=== PATIENT | male | born 1945 | race Caucasian/White ===

== ENCOUNTER 2016-06-14 07:58 | Outpatient (CLI) | payer MEDICARE, OTHER ==
[~2016-06-14] VITALS: Ht 180.3 cm; Wt 111.2 kg
[~2016-06-14 07:58] MED LIST: ASP325T PO; BP MED; BSP10T PO; BUPR150T20 PO; CALC-817 PO; CHOLESTEROL MED; CIME300T49 PO; DCC240C PO; DCS100C PO; GBPN300C PO; METO25TA2 PO; MULT-974 PO; OMEP20TA2 PO; OXYC-12 PO; RANI75TA30 PO; SLEEPING PILL; SODI100P15 DT; SRTR100T PO; TRAZ300T3 PO; TRZ100T PO; ZOLP10TA5 PO; calcium; gabapentin
[2016-06-14 08:19] VITALS: BP 132/83
[2016-06-14 09:15] LABS: BASOPHILS % (AUTO) 1 % (0-10); EOSINOPHILS # (AUTO) 0.3 10^3/uL (0.0-0.3); EOSINOPHILS % (AUTO) 8 % (0-10); LYMPHOCYTES % (AUTO) 27 % (12-44); MEAN CORPUSCULAR HEMOGLOBIN 33 PG (25-34); MEAN CORPUSCULAR HGB CONC 34 G/DL (32-36); MEAN CORPUSCULAR VOLUME 98 FL (80-99); MEAN PLATELET VOLUME 9.5 FL (7.4-10.4); MONOCYTES # (AUTO) 0.4 X 10^3 (0.0-1.0); MONOCYTES % (AUTO) 10 % (0-12); NEUTROPHILS # (AUTO) 1.9 X 10^3 (1.8-7.8); NEUTROPHILS % (AUTO) 54 % (42-75); PLATELET COUNT 208 10^3/uL (130-400); RED BLOOD COUNT 4.51 10^6/uL (4.35-5.85); WHITE BLOOD COUNT 3.5 10^3/uL (4.3-11.0)
[2016-06-14 09:33] LABS: ANION GAP 8 MMOL/L (5-14); BLOOD UREA NITROGEN 18 MG/DL (7-18); BUN/CREATININE RATIO 18; CALCIUM 9.2 MG/DL (8.5-10.1); CARBON DIOXIDE 30 MMOL/L (21-32); CHLORIDE 104 MMOL/L (98-107); CREATININE SERUM 1.01 MG/DL (0.60-1.30); GFR ESTIMATED > 60; GLUCOSE 97 MG/DL (70-105); POTASSIUM 4.7 MMOL/L (3.6-5.0); SODIUM 142 MMOL/L (135-145)
--- OUTSIDE RECORDS SUMMARY | 2016-06-14 13:11 | XMS REPORT | Continuity of Care Document ---
Author Author [facility] Organization [facility] Address Unknown Phone Unavailable Allergies Active Description Code Type Severity Reaction Onset Reported/Identified Relationship to Patient Clinical Status Yes codeine [id number] Drug Allergy Unknown N/A 01/16/2011 Yes morphine [id number] Drug Allergy Unknown N/A 01/16/2011 Medications Problems Date Dx Coded Attending Type Code Diagnosis Diagnosed By 05/22/2014 GISELL SMITH DO Ot 794.5 06/17/2014 GISELL SMITH DO Ot 794.5 Procedures Results Encounters ACCT No. Visit Date/Time Discharge Status Pt. Type Provider Facility Loc./Unit Complaint [id number] 05/19/2014 13:16:00 2014 23:59:59 CLS Outpatient GISELL SMITH DO [facility] RAD [id number] 02/25/2013 09:55:00 2012 15:58:00 DIS Inpatient [id number] 02/21/2013 09:32:00 2012 23:59:59 CLS Outpatient
== END 2016-06-14 09:00 | disposition home or self-care (01) ==
LOC: PREOP 07:58
PROVIDERS: ATTEND Otolaryngology Otolaryngology/Facial Plastic Surgery
DX: Z01.812 Encounter for preprocedural laboratory examination (principal); Z11.2 Encounter for screening for other bacterial diseases; L98.9 Disorder of the skin and subcutaneous tissue, unspecified
CPT/HCPCS: 36415; 80048; 85025; 87081; 93005

== ENCOUNTER 2016-06-16 07:49 | Day surgery (SDC) | payer MEDICARE, OTHER ==
[~2016-06-16] VITALS: Ht 180.3 cm; Wt 111.2 kg
--- OUTSIDE RECORDS SUMMARY | 2016-06-16 07:52 | XMS REPORT | Continuity of Care Document ---
Author Author [facility] Organization [facility] Address Unknown Phone Unavailable Allergies Active Description Code Type Severity Reaction Onset Reported/Identified Relationship to Patient Clinical Status Yes codeine [id number] Drug Allergy Unknown N/A 01/16/2011 Yes morphine [id number] Drug Allergy Unknown N/A 01/16/2011 Medications Problems Date Dx Coded Attending Type Code Diagnosis Diagnosed By 01/16/2011 Ot 881.01 OPEN WOUND OF ELBOW 01/16/2011 Ot E000.8 OTHER EXTERNAL CAUSE STATUS 01/16/2011 Ot E849.0 ACCIDENT IN HOME 01/16/2011 Ot E888.1 FALL STRIKING OBJECT NEC 05/27/2011 Ot 285.9 ANEMIA NOS 05/27/2011 Ot 455.0 INT HEMORRHOID W/O COMPL 05/27/2011 Ot 530.11 REFLUX ESOPHAGITIS 05/27/2011 Ot 535.40 OTH SPECIFIED GASTRITIS,W/O MENTION OF H 05/27/2011 Ot 564.00 UNSPEC CONSTIPATION 05/27/2011 Ot 569.3 RECTAL ANAL HEMORRHAGE 02/26/2013 KALIN PACHECO DO Ot 996.42 DISLOCATION OF PROSTHETIC JOINT 02/26/2013 KALIN PACHECO DO Ot V03.82 PROPHYLACTIC VACC AGAINST STREPTOCOCCUS 02/26/2013 KALIN PACHECO DO Ot V43.64 HIP JOINT REPLACEMENT STATUS 05/22/2014 GISELL SMITH DO S Ot 794.5 06/17/2014 GISELL SMITH DO S Ot 794.5 06/14/2016 Ot 784.2 SWELLING IN HEAD NECK 06/14/2016 Ot 826.0 FX PHALANX, FOOT-CLOSED 06/14/2016 Ot E000.8 OTHER EXTERNAL CAUSE STATUS 06/14/2016 Ot E928.9 ACCIDENT NOS 06/14/2016 Ot 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 06/14/2016 Ot 780.79 OTH MALAISE FATIGUE 06/14/2016 Ot V10.83 HX-SKIN MALIGNANCY NEC 06/14/2016 Ot V15.88 HISTORY OF FALL 06/14/2016 HERMANNSAADKALIN NEFF DO Ot 719.45 JOINT PAIN-PELVIS 06/14/2016 HERMANNCHRIS KALIN MIN Ot V72.63 PRE-PROCEDURAL LABORATORY EXAMINATION 06/14/2016 KALIN PACHECO DO Ot V72.81 [id number] CARDIOVASCULAR 06/14/2016 KALIN PACHECO DO Ot V74.8 SCREEN-BACTERIAL DIS NEC 06/14/2016 GISELL SMITH DO Ot 794.5 ABN THYROID FUNCT STUDY Procedures Code Description Performed By Performed On 00.73 JENNIFER OF HIP REPLACE, ACETABULAR LINER 02/25/2013 Results Test Result Range Complete blood count (CBC) with automated white blood cell (WBC) differential - 06/14/16 08:40 Blood leukocytes automated count (number/volume) 3.5 10*3/ uL 4.3-11.0 Blood erythrocytes automated count (number/volume) 4.51 10*6 /uL 4.35-5.85 Venous blood hemoglobin measurement (mass/volume) 14.9 g/dL 13.3-17.7 Blood hematocrit (volume fraction) 44 % 40-54 Automated erythrocyte mean corpuscular volume 98 [foz_us] 80-99 Automated erythrocyte mean corpuscular hemoglobin (mass per erythrocyte) 33 pg 25-34 Automated erythrocyte mean corpuscular hemoglobin concentration measurement ( mass/volume) 34 g/dL 32-36 Automated erythrocyte distribution width ratio 13.0 % 10.0-14.5 Automated blood platelet count (count/volume) 208 10*3/uL 130-400 Automated blood platelet mean volume measurement 9.5 [foz_us ] 7.4-10.4 Automated blood neutrophils/100 leukocytes 54 % 42-75 Automated blood lymphocytes/100 leukocytes 27 % 12-44 Blood monocytes/100 leukocytes 10 % 0-12 Automated blood eosinophils/100 leukocytes 8 % 0-10 Automated blood basophils/100 leukocytes 1 % 0-10 Blood neutrophils automated count (number/volume) 1.9 10*3 1.8-7.8 Blood lymphocytes automated count (number/volume) 1.0 10*3 1.0-4.0 Blood monocytes automated count (number/volume) 0.4 10*3 0.0-1.0 Automated eosinophil count 0.3 10*3/uL 0.0-0.3 Automated blood basophil count (count/volume) 0.0 10*3/uL 0.0-0.1 Whole blood basic metabolic panel - 06/14/16 08:40 Serum or plasma sodium measurement (moles/volume) 142 mmol/ L 135-145 Serum or plasma potassium measurement (moles/volume) 4.7 mmol/L 3.6-5.0 Serum or plasma chloride measurement (moles/volume) 104 mmol /L 98-107 Carbon dioxide 30 mmol/L 21-32 Serum or plasma anion gap determination (moles/volume) 8 mmol/L 5-14 Serum or plasma urea nitrogen measurement (mass/volume) 18 mg/dL 7-18 Serum or plasma creatinine measurement (mass/volume) 1.01 mg /dL 0.60-1.30 Serum or plasma urea nitrogen/creatinine mass ratio 18 NRG Serum or plasma creatinine measurement with calculation of estimated glomerular filtration rate > NRG Serum or plasma glucose measurement (mass/volume) 97 mg/dL 70-105 Serum or plasma calcium measurement (mass/volume) 9.2 mg/dL 8.5-10.1 Methicillin resistant Staphylococcus aureus (MRSA) screening culture - 08:40 Methicillin resistant Staphylococcus aureus (MRSA) screening culture NEG NRG Encounters ACCT No. Visit Date/Time Discharge Status Pt. Type Provider Facility Loc./Unit Complaint [id number] 05/19/2014 13:16:00 2014 23:59:59 CLS Outpatient MARCOANISHA GISELL S [facility] RAD ABNORMAL THYROID STUDIES [id number] 02/25/2013 09:55:00 2012 15:58:00 DIS Inpatient HERMANNTERKALIN NEFF DO [facility] SURGICAL LEFT HIP PAIN [id number] 02/21/2013 09:32:00 2012 23:59:59 CLS Outpatient KALIN PACHECO DO [facility] PREOP LEFT HIP PAIN [id number] 06/16/2016 11:00:00 PEN Preadmit CARLTON TAVARES MD [facility] SDC SKIN LESIONS [id number] 06/14/2016 07:58:00 ACT Outpatient CARLTON TAVARES MD [facility] PREOP SKIN LESIONS [id number] 05/28/2012 11:15:00 Document Registration [id number] 05/23/2012 10:50:00 Document Registration [id number] 05/27/2011 09:19:00 Document Registration [id number] 05/05/2011 09:43:00 Document Registration [id number] 01/16/2011 11:19:00 Document Registration
--- OUTSIDE RECORDS SUMMARY | 2016-06-16 07:52 | XMS REPORT | Continuity of Care Document ---
Author Author [facility] Organization [facility] Address Unknown Phone Unavailable Allergies Active Description Code Type Severity Reaction Onset Reported/Identified Relationship to Patient Clinical Status Yes codeine [id number] Drug Allergy Unknown N/A 01/16/2011 Yes morphine [id number] Drug Allergy Unknown N/A 01/16/2011 Medications Problems [...] EXAMINATION 06/14/2016 KALIN PACHECO DO Ot V72.81 [id number] CARDIOVASCULAR 06/14/2016 KALIN PACHECO DO Ot V74.8 [...] Status Pt. Type Provider Facility Loc./Unit Complaint [id number] 05/19/2014 13:16:00 2014 23:59:59 CLS Outpatient MARCOANISHA GISELL S [facility] RAD ABNORMAL THYROID STUDIES [id number] 02/25/2013 09:55:00 2012 15:58:00 DIS Inpatient HERMANNTERKALIN NEFF DO [facility] SURGICAL LEFT HIP PAIN [id number] 02/21/2013 09:32:00 2012 23:59:59 CLS Outpatient KALIN PACHECO DO [facility] PREOP LEFT HIP PAIN [id number] 06/16/2016 11:00:00 PEN Preadmit CARLTON TAVARES MD [facility] SDC SKIN LESIONS [id number] 06/14/2016 07:58:00 ACT Outpatient CARLTON TAVARES MD [facility] PREOP SKIN LESIONS [id number] 05/28/2012 11:15:00 Document Registration [id number] 05/23/2012 10:50:00 Document Registration [id number] 05/27/2011 09:19:00 Document Registration [id number] 05/05/2011 09:43:00 Document Registration [id number] 01/16/2011 11:19:00 Document Registration
[2016-06-16 08:05] VITALS: BP 120/83
[2016-06-16] MEDS ORDERED: FERR324T4 PO (08:42)
[2016-06-16] MEDS ORDERED: ACET-2469 PO (08:42)
[2016-06-16] MEDS ORDERED: OMEP20CA12 PO (08:42)
[2016-06-16] MEDS ORDERED: DONE10TA41 PO (08:42)
[2016-06-16] MEDS ORDERED: VNL75T PO (08:42)
[2016-06-16] MEDS ORDERED: TAMS0.4C98 PO (08:42)
[2016-06-16] MEDS ORDERED: SIMV40TA4 PO (08:42)
[2016-06-16] MEDS ORDERED: LACTATED RINGERS 1,000 ML IV SCH (10:00)
[2016-06-16] MEDS ORDERED: MUPIROCIN 2% OINT 22 GM (BACTROBAN) TUBE ONE (10:43)
[2016-06-16] MEDS ORDERED: LIDOCAINE/EPI 1%-1:100,000 (XYLOCAINE) 20ML ONE (10:43)
[2016-06-16] MEDS ORDERED: LACTATED RINGERS 1,000 ML IV PRN (10:56)
[2016-06-16] MEDS ORDERED: proPOfol 200 MG/20 ML (DIPRIVAN) VIAL IV ONE (10:57)
[2016-06-16] MEDS ORDERED: fentaNYL INJECTION 100 MCG/2 ML AMP ONE (10:57)
[2016-06-16] MEDS ORDERED: ONDANSETRON 4 MG/2 ML (SDV) Z0FRAN ONE (12:19)
[2016-06-16] MEDS ORDERED: PHENYLEPHRINE 100 MCG/ML 10 ML (ANESTHESIA) SYR ONE (12:19)
[2016-06-16] MEDS ORDERED: SEVOFLURANE (ULTANE) 15 ML INHAL SOLN ONE ×4 (12:19→12:56)
[2016-06-16] MEDS ORDERED: LACTATED RINGERS 1,000 ML IV ONE (12:19)
--- NOTE | 2016-06-16 12:47 | Progress Note-Pre Operative ---
Pre-Operative Progress Note H&P Reviewed The H&P was reviewed, patient examined and no changes noted. Date H&P Reviewed: Jun 16, 2016 Time H&P Reviewed: 11:30 Pre-Operative Diagnosis: Left Forehead Lesion, Posterior Scalp Lesion CARLTON TAVARES MD Jun 16, 2016 12:46 pm
[2016-06-16] MEDS ORDERED: ACETAMINOPHEN 325 MG TABLET/CAPLET (TYLENOL) PO PRN (13:00)
[2016-06-16 13:35] VITALS: BP 131/91
[2016-06-16] MEDS ORDERED: OXYC-197 PO (13:54)
[2016-06-16 14:05] VITALS: BP 150/82
== END 2016-06-16 14:10 | disposition home or self-care (01) ==
LOC: SDC 07:49
PROVIDERS: ATTEND Otolaryngology Otolaryngology/Facial Plastic Surgery
DX: C44.41 Basal cell carcinoma of skin of scalp and neck (principal); L82.1 Other seborrheic keratosis
CPT/HCPCS: 88305; 88331; 88332

== ENCOUNTER → 2020-12-30 | Outpatient (CLI) | payer MEDICARE, OTHER ==
[~2020-12-30] MED LIST changes: +ACET-3075 PO; +DONE10TA41 PO; +FERR324T4 PO; +OMEP20CA18 PO; +OXYC1TAB87 PO; +SIMV40TA25 PO; +TMSL.4C PO; +VNL75T PO
--- NOTE | 2020-12-30 13:59 | Diagnostic Imaging Report ---
PROCEDURE: US right lower extremity venous. TECHNIQUE: Multiple real-time grayscale images were obtained over the right lower extremity in various projections. Additional spectral analysis and color Doppler duplex images were also obtained. INDICATION: Right leg pain. FINDINGS: There is no evidence of right lower extremity DVT. Right lower extremity deep venous system shows normal compressibility with normal response to augmentation and Valsalva. No fluid collection or mass is detected. IMPRESSION: No evidence of right lower extremity DVT. Dictated by: Dictated on workstation # [id number]
== END ==
LOC: RAD 12:11
PROVIDERS: ATTEND Family Medicine
DX: M79.661 Pain in right lower leg (principal)

== ENCOUNTER → 2022-01-19 | Outpatient (CLI) | payer MEDICARE, OTHER ==
--- NOTE | 2022-01-19 10:57 | Diagnostic Imaging Report ---
INDICATION: Left shoulder injury from a fall. FINDINGS: Three views of the left shoulder show postop changes from tendon repair of the left shoulder. There is an old healed fracture of the midshaft of the clavicle. There is no acute fracture or dislocation. IMPRESSION: No acute abnormality is seen in the left shoulder. Dictated by: Dictated on workstation # [id number]
== END ==
LOC: RAD
PROVIDERS: ATTEND Nurse Practitioner Family
DX: S49.92XA Unspecified injury of left shoulder and upper arm, initial encounter (principal); W19.XXXA Unspecified fall, initial encounter
CPT/HCPCS: 73030